=== PATIENT | male | born 1995 | race Caucasian/White ===

== ENCOUNTER 2024-10-18 23:39 | Emergency (ER) | payer SELFPAY ==
[~2024-10-18] VITALS: Ht 175.3 cm; Wt 57.6 kg
[2024-10-18 23:40] VITALS: TEMP 99.2
[2024-10-19] MEDS ORDERED: CEPHALEXIN MONOHYDRATE 250 MG CAP PO SCH
[2024-10-19] MEDS: LIDOCAINE HCL 1% LOCAL INJ 20 ML VIAL INJ ONE (00:11)
[2024-10-19] MEDS: BACITRACIN ZINC 0.9GM TP ONE (00:11)
[2024-10-19 01:13] VITALS: PULSE 95; RESP 18
[2024-10-19] MEDS ORDERED: CEPHALEXIN500 MG PO (01:15)
[2024-10-19 01:19] VITALS: BP 123/73; PULSE 95; RESP 18; TEMP 99.2; O2SAT 98
== END 2024-10-19 01:19 | disposition home or self-care (01) ==
LOC: FSED 23:42
DX: S01.111A Laceration without foreign body of right eyelid and periocular area, initial encounter (principal); S01.411A Laceration without foreign body of right cheek and temporomandibular area, initial encounter; Y04.0XXA Assault by unarmed brawl or fight, initial encounter; Y92.89 Other specified places as the place of occurrence of the external cause
CPT/HCPCS: 12011; 70450; 70486; 99283; J2003